=== PATIENT | male | born 1960 | race Caucasian/White ===

== ENCOUNTER 2016-11-19 08:27 | Emergency (ER) | payer OTHER ==
[~2016-11-19] VITALS: Ht 180.3 cm; Wt 81.6 kg
[2016-11-19] MEDS ORDERED: NKM (08:44)
--- NOTE | 2016-11-19 08:56 | Emergency Room Report ---
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 The patient states that a substance best out of the line. The color of the water was yellow and smelled chalk. He states that he did irrigate his eyes twice prior to arrival. However, he states it is very uncomfortable for him to open his eyes. He has a burning sensation. He states that he has had many things given to his eyes on his job and usually everything resolves with some irrigation. However this time it is much worse. He has no other injuries or complaints. Allergies: Coded Allergies: PENICILLINS (Verified Allergy, Unknown, 11/19/16) SULFA (SULFONAMIDE ANTIBIOTICS) (Verified Allergy, Unknown, 11/19/16) Uncoded Allergies: -CYCLINES (Allergy, Unknown, 11/19/16) Patient History Past Medical History: none, see triage record Reviewed Nursing Documentation: PMH: Agreed, PSxH: Agreed Nursing Documentation-PMH Past Medical History: No Stated History Review of Systems All Other Systems: negative except mentioned in HPI Physical Exam Vital Signs Date Time Temp Pulse Resp B/P Pulse Ox O2 Delivery O2 Flow Rate FiO2 11/19/16 08:36 97.9 86 14 136/90 94 Room Air Sp02 EP Interpretation: reviewed, normal General Appearance: no apparent distress, alert, GCS 15, non-toxic Head: normocephalic, atraumatic Eyes: bilateral eye EOMI, bilateral eye PERRL, bilateral eye other - Discomfort with eye opening. [place] lamp exam: No fluoroscin uptake. Conjunctival erythema bilaterally. No fb identified. Lids flipped., bilateral eye photophobia ENT: hearing grossly normal, normal pharynx, no angioedema, normal voice Neck: full range of motion, supple/symm/no masses Respiratory: no respiratory distress, no retraction, no accessory muscle use, speaking full sentences Gastrointestinal: normal inspection Rectal: deferred Musculoskeletal: back normal, gait/station normal, normal range of motion, non- tender Neurologic: alert, oriented x3, responsive, motor strength/tone normal, sensory intact, speech normal Psychiatric: judgement/insight normal, memory normal, mood/affect normal, no suicidal/homicidal ideation Skin: normal color, no rash, warm/dry, well hydrated Medical Decision Making Diagnostic Impression: Primary Impression: Chemical burn due to acid, conjunctiva ER Course This patient presents with a chemical conjunctivitis. The patient did bring in some of the fluid that went into his eyes. I did test the pH of the fluid and it was found to be 6.5. This is mildly acidic. I irrigated the eyes aggressively with a Ede lens. I also swept the eyes with a cotton tip applicator saturated with tetracaine. I flipped the eyelid then gently swabbed the eyeballs. There does not appear to be any retained substances or foreign bodies. I discussed the case with the on-call stripe matcher Dr. Greco. He recommended irrigation and topical antibiotics. The patient was not able to tolerate more than a half a liter per eye with a Ede lens. The patient was instructed to follow up with stripe matcher tomorrow. Patient given return precautions and followup instructions. Last Vital Signs Date Time Temp Pulse Resp B/P Pulse Ox O2 Delivery O2 Flow Rate FiO2 11/19/16 08:36 97.9 86 14 136/90 94 Room Air Disposition: HOME, SELF-CARE Condition: Improved Scripts Erythromycin Base (ERYTHROMYCIN*) 3.5 Gm Oint...g. 1 APPLIC BOTH EYES TID for 7 Days, #3.5 GM 0 Refills Prov: ORALIA MERCEDES D.O. 11/19/16 Patient Instructions: Chemical Conjunctivitis, [id number] ORALIA MERCEDES D.O. Nov 19, 2016 08:56
[2016-11-19] MEDS ORDERED: Fluorescein Strips BOTH EYES ONE (09:00)
[2016-11-19] MEDS ORDERED: Tetracaine 0.5% Opth Soln RIGHT EYE ONE (09:00)
[2016-11-19] MEDS ORDERED: Tetracaine 0.5% Opth Soln LEFT EYE ONE (09:00)
[2016-11-19 09:25] VITALS: BP 139/87
[2016-11-19] MEDS ORDERED: ERYTHROMYCIN3.5 GM BOTH EYES (10:35)
[2016-11-19 10:40] VITALS: BP 139/87
[2016-11-19] MEDS ORDERED: OCUFLOX5 ML OP (10:42)
== END 2016-11-19 10:42 | disposition home or self-care (01) ==
LOC: EMR 09:05
DX: T26.62XA Corrosion of cornea and conjunctival sac, left eye, initial encounter (principal); T26.61XA Corrosion of cornea and conjunctival sac, right eye, initial encounter; Y93.9 Activity, unspecified; Y99.0 Civilian activity done for income or pay; Z88.0 Allergy status to penicillin; Z88.2 Allergy status to sulfonamides
CPT/HCPCS: 65205; 99284